=== PATIENT | male | born 1955 | race Caucasian/White ===

== ENCOUNTER → 2017-02-05 | Day surgery (SDC) | payer OTHER ==
[~2017-02-05] MED LIST: BUPIVACAINE/EPINEPHRINE 0.25% PF 10 ML VIAL ONE; LACTATED RINGER'S 1000 ML INJ 1,000 ML ONE; MIDAZOLAM HCL 2 MG/2 ML VIAL ONE; ONDANSETRON HCL 4 MG/2 ML VIAL IV PUSH ONE; PROPOFOL 200 MG/20 ML AMP IV ONE; ceFAZolin 2 GM PREMIX 50 ML ONE
--- NOTE | 2017-02-05 10:03 | TN ---
cc: TONA MARTIN DATE OF SURGERY 02/05/2017 PREOPERATIVE DIAGNOSIS Left upper extremity soft tissue mass 4 cm. POSTOPERATIVE DIAGNOSIS Left upper extremity soft tissue mass 4 cm. PROCEDURE Excision of left upper extremity 4 cm x 3 cm soft tissue mass subcutaneous abutting fascia and muscle. ANESTHESIA General ATTENDING SURGEON Tona Martin MD RESIDENTIAL INSTALLER Staff BLOOD LOSS Less than 10 cc's COMPLICATIONS None FINDINGS A 3 cm x 4 cm soft-tissue mass attached to fascia of the deltoid muscle completely excised in total. INDICATIONS FOR PROCEDURE The patient is a 61-year-old male with a left lower extremity soft tissue mass for many years, discomfort and has a history of painful swelling concerning for possible infection. The patient wished to have this removed and is concerned about the increase in size recently. The risks, benefits and alternatives to excision of soft tissue mass were discussed with the patient in detail prior to the procedure and patient agreed to undergo the procedure. PROCEDURE After informed consent was obtained, the patient was taken to the operating room, placed in a supine position and placed under general anesthesia. The left upper extremity was prepped and draped in a sterile fashion. Time-out was performed. Local anesthetic was instilled in the planned excision site of left upper extremity soft tissue mass. An elliptical 4 cm incision was made to excise the skin over the mass with a 15 blade scalpel. Metzenbaum scissors and Bovie electrocautery was used to dissect around the mass completely which was well encapsulated. This was completely excised and we did take a small 2 cm x 2 cm area of deltoid fascia. This was attached to the mass. There was no muscle invasion. We had grossly negative margins and the mass was marked at superior aspect with a silk stitch. This was passed off for permanent processing. We irrigated out the cavity and we got excellent hemostasis. We closed the cavity with 3-0 Vicryl sutures followed by 4-0 Monocryl and Dermabond. The patient, at this point in time was discontinued from anesthesia and taken to PACU in stable condition. The patient tolerated the procedure well with no apparent complications. All counts were correct and I was present and scrubbed for the entire procedure. MD CALEB Goff/MIGUEL /9:47 AM /9:56 AM
== END | disposition home or self-care (01) ==
LOC: ESDC 06:39
PROVIDERS: ATTEND Surgery
DX: L72.0 Epidermal cyst (principal)
CPT/HCPCS: 00400; 11406; 88304; J0690; J2250; J2405; J3010; J7120; 88305